=== PATIENT | male | born 1940 | race Caucasian/White ===

== ENCOUNTER → 2017-11-01 | Outpatient (CLI) | END | disposition home or self-care (01) ==

== ENCOUNTER → 2017-11-18 | Outpatient (CLI) | END | disposition home or self-care (01) ==

== ENCOUNTER 2017-11-28 08:04 | Inpatient (IN) | END 2017-11-30 12:45 | disposition home health service (06) | DRG 470 ==

== ENCOUNTER → 2017-12-16 | Outpatient (CLI) | END | disposition home or self-care (01) ==

== ENCOUNTER → 2018-01-27 | Outpatient (CLI) | END | disposition home or self-care (01) ==

== ENCOUNTER → 2018-03-10 | Outpatient (CLI) | END | disposition home or self-care (01) ==

== ENCOUNTER → 2018-04-14 | Outpatient (CLI) | END | disposition home or self-care (01) ==

== ENCOUNTER → 2018-06-02 | Outpatient (CLI) | END | disposition home or self-care (01) ==